=== PATIENT | male | born 1995 | race Caucasian/White ===

== ENCOUNTER 2024-10-19 23:20 | Emergency (ER) | payer OTHER, SELFPAY ==
[2024-10-19 23:29] VITALS: BP 153/96; PULSE 67; RESP 16; TEMP 36.5; O2SAT 96; BMI 27.3
--- NOTE | 2024-10-20 00:28 | ED_ITS ---
HPI - Wound/Laceration General Chief Complaint: Wound/Laceration Stated Complaint: cut left index finger Time Seen by Provider: 10/20/24 00:10 Source: patient Mode of arrival: Ambulatory History of Present Illness HPI narrative: 29-year-old male here for evaluation of a cut to his left index finger. The laceration occurred just a couple hours prior to arrival here in the emergency department when he was using he was knife to cut some wood. He was up-to-date on his tetanus. No other injuries from the event. Related Data Allergies Allergy/AdvReac Type Severity Reaction Status Date / Time No Known Drug Allergies Allergy Verified 10/19/24 23:29 Review of Systems Review of Systems Narrative: See HPI Patient History Social History Smoking Status: Never smoker Smoking Status: Never smoker Exam Initial Vital Signs Initial Vital Signs: Vital Signs Temperature 97.7 F 10/19/24 23:29 Pulse Rate 67 10/19/24 23:29 Respiratory Rate 16 10/19/24 23:29 Blood Pressure 153/96 H 10/19/24 23:29 Pulse Oximetry 96 10/19/24 23:29 Oxygen Delivery Method Room Air 10/19/24 23:29 Skin Other: 2 cm laceration on the volar aspect of the left index finger over the DIPJ joint. Neuro Sensory Exam: no sensory deficits noted Extrem Other: Patient was full range of motion of the MCP PIP and DIPJ joint both in conjunction and also independent of each other. Procedures Laceration Repair Laceration 1: Site: other (Index finger) Side (If applicable): left Size (cm): 1.5 Description: linear Depth: simple, single layer Local Anesthetic: lidocaine 1% Amount of anesthesia used (mL): 3 Pre-repair: wound explored, irrigated extensively and deep structures intact Skin layer closed with: nylon Skin layer suture size: 4-0 Number of sutures: 5 Technique: simple, interrupted Course Orders Ordered: Discontinued Medications Bacitracin (Bacitracin Oint 0.9 Gm Pckt) 1 applic TOP NOW ONE Stop: 10/20/24 00:29 Vital Signs Vital signs: Vital Signs - 8 hr 10/19/24 23:29 10/20/24 00:42 Temperature 97.7 F Pulse Rate 67 63 Respiratory Rate 16 16 Blood Pressure 153/96 H 134/81 Pulse Oximetry 96 98 Oxygen Delivery Method Room Air Room Air MDM - Wound/Laceration MDM Narrative Medical decision making narrative: Patient was neurovascularly intact. No foreign bodies noted. I have low s uspicion for ligamentous injury. Wound is closed as described above. Patient was given care instructions and return precautions. He expressed understanding and agreement with the plan. Discharge Plan Departure Patient Disposition: Home Clinical Impression: Laceration Instructions: DI for Minor Laceration Activity Restrictions/Additional Instructions: The stitches are going to need removed in 7-10 days. Your medical department can do this. Until then you can wash your hands like normal. Do not soak your hands and anything until the stitches are removed. Return emergency for new symptoms. Referrals: ProviderEllen [Primary Care Provider] - Stand Alone Forms: Patient Portal/API/Survey
[2024-10-20 00:42] VITALS: BP 134/81; PULSE 63; RESP 16; O2SAT 98
== END 2024-10-20 00:43 | disposition home or self-care (01) ==
PROVIDERS: Emergency Provider Emergency Medicine
DX: S61.211A Laceration without foreign body of left index finger without damage to nail, initial encounter (principal); W26.0XXA Contact with knife, initial encounter; Y93.9 Activity, unspecified
CPT/HCPCS: 12001; 99282; 99283